=== PATIENT | female | born 1995 | race Asian ===

== ENCOUNTER 2017-07-18 17:16 | Emergency (ER) | payer OTHER ==
[~2017-07-18] VITALS: Ht 152.4 cm; Wt 83.7 kg
[2017-07-18 17:21] VITALS: TEMP 36; Ht 152.4 cm; Wt 83.7 kg
[2017-07-18 19:31] VITALS: BP 107/77; PULSE 102; O2SAT 99
--- NOTE | 2017-07-18 19:39 | EMERGENCY ROOM VISIT NOTE ---
History First contact with patient: 17:18 Chief Complaint: ALCOHOL OVERDOSE Stated Complaint: ETOH Nursing Triage Summary: pt riding on bus vomitting , unable to find sober friend History of Present Illness The patient is a 21 year old female who presents to the Emergency Room via EMS for alcohol intoxication. The patient was found riding on the bus and was vomiting. She was unable to find a sober friend therefore they brought her to the emergency room. The patient states that she was drinking hard liquor but denies any drug use. The patient currently does not feel nauseated. The patient states that all her sober friends are working right now. Review of Systems 10 system review was performed and was negative unless stated otherwise history of present illness. Past Medical/Surgical History Patient denies any significant past medical history. Social History Smoking Status: Never Smoker Alcohol Use: occasionally Marital Status: single Housing Status: lives with roommate Occupation Status: [employer] student Current/Historical Medications No Active Prescriptions or Reported Meds Physical Exam Vital Signs Date Time Temp Pulse Resp B/P (MAP) Pulse Ox O2 Delivery O2 Flow Rate FiO2 07/18/17 19:31 102 20 107/77 99 Room Air 07/18/17 18:00 70 14 106/53 98 Room Air 07/18/17 17:37 66 07/18/17 17:21 36.0 77 20 124/72 97 Room Air Physical Exam GENERAL: 21-year-old female appears in no acute distress. The patient appears slightly intoxicated. MENTAL Status: Alert and oriented 3. The patient is answering questions appropriately. EYES: PERRLA. EOMs intact NECK: Supple, no lymphadenopathy noted. No carotid bruits noted. LUNGS: Clear auscultation without wheezes rales or rhonchi. CARDIAC: Regular rate and rhythm without murmur. Pulses is full and equal throughout. NEURO:Cranial nerves two through 12 intact. Cerebellar function intact with [id number]. Fine motor intact with alternating finger motions. Medical Decision & Procedures Laboratory Results Test 07/18/17 18:33 Ethyl Alcohol mg/dL 237.2 mg/dl (0-3) ED Course The patient was evaluated. Medical alcohol was 237. The patient was placed in the prone position. I told the patient if she could find a sober friend she could leave. After several hours the patient the patient remained alert and oriented. She was able to contact a friend who was going to pick her up. The patient was discharged home in stable condition. Medical Decision The patient remained alert and oriented throughout entire ER stay. I felt that she was safe to go home with a friend. [place] Drug Monitoring Program Search Results: patient reviewed within database Medication Reconcilliation Current Medication List: was personally reviewed by me Blood Pressure Screening Patient's blood pressure: Normal blood pressure Impression Primary Impression: Alcohol use with intoxication Departure Information Dispostion Home / Self-Care Condition GOOD Prescriptions No Active Prescriptions or Reported Meds Referrals No Doctor, Assigned (PCP) Forms HOME CARE DOCUMENTATION FORM, IMPORTANT VISIT INFORMATION Patient Instructions [facility]: [employer] Students and Alcohol Related Visits, [facility] Additional Instructions Avoid excessive alcohol consumption. Do not drive for the remainder of the day. Push fluids.
== END 2017-07-18 19:51 | disposition home or self-care (01) ==
LOC: C.EDB 17:18
DX: F10.129 Alcohol abuse with intoxication, unspecified (principal); Y90.7 Blood alcohol level of 200-239 mg/100 ml